=== PATIENT | female | born 1990 | race Caucasian/White ===

== ENCOUNTER 2019-04-25 05:25 | Emergency (ER) | payer MEDICAID ==
[~2019-04-25] VITALS: Ht 165.1 cm; Wt 74.8 kg
[2019-04-25] MEDS ORDERED: ALBUTEROL SULFATE/IPRATROPIU 3 ML SOL IH STA (05:30)
[2019-04-25] MEDS ORDERED: ALBUTEROL SULFATE/IPRATROPIU 3 ML SOL IH ONE (05:30)
--- NOTE | 2019-04-25 05:30 | NUR ---
BIB SELF REPORTS SOB, ASTHMA ATTACK, SINCE 10PM. STATES SHE HAS TRIED HER INHALER AND NEBULIZER WITHOUT RELIEF. AUDIBLE WHEEZING. LABORED AND DEEP BREATHING. 94% ON RA. PT REPORTS NO OTHER SYMPTOMS OR PAIN AT THIS TIME.
--- NOTE | 2019-04-25 05:37 | NUR ---
RT AT BEDSIDE.
[2019-04-25] MEDS ORDERED: DEXAMETHASONE 10 MG/ML VIAL IM ONE (06:00)
[2019-04-25] MEDS ORDERED: ALBUTEROL 0.083% 2.5 MG/3 ML NEBU INH ONE (06:10)
[2019-04-25] MEDS ORDERED: MAG SULF 2000 MG/WATER PREMIX 50 ML IV ONE (06:30)
[2019-04-25 07:09] VITALS: BP 110/53
--- NOTE | 2019-04-25 07:09 | NUR ---
Patient discharged with v/s stable. Written and verbal after care instructions given and explained. Patient alert, oriented and verbalized understanding of instructions. Ambulatory with steady gait. All questions addressed prior to discharge. ID band removed. Patient advised to follow up with PMD. Rx of PREDNISONE, ALBUTEROL given. Patient educated on indication of medication including possible reaction and side effects. Opportunity to ask questions provided and answered.
== END 2019-04-25 07:04 | disposition home or self-care (01) ==
LOC: MED 05:25
DX: J45.901 Unspecified asthma with (acute) exacerbation (principal); F17.200 Nicotine dependence, unspecified, uncomplicated
CPT/HCPCS: 94640; 96372; 99284; J1100; J7613; J7620

== ENCOUNTER 2019-05-20 19:42 | Emergency (ER) | payer MEDICAID ==
[~2019-05-20] VITALS: Ht 165.1 cm; Wt 77.1 kg
[2019-05-20 19:47] VITALS: BP 145/90
--- NOTE | 2019-05-20 19:49 | NUR ---
TO LOBBY A/W BED AMBULATORY
--- NOTE | 2019-05-20 20:07 | NUR ---
PT TO BED 6.
--- NOTE | 2019-05-20 20:23 | NUR ---
PT BIB FAMILY C/O LOWER BACK PAIN. PT REPORTS FALLING IN SHOWER LAST NIGHT AND IS NOT SURE HOW SHE LANDED BUT DENIES HITING HEAD OR LOC. PT REPORTS PAIN AT 8/10 IN SACRAL REGION THAT RADIATES TO LT HIP, THAT IS WORSENED BY STRETCHING OR MOVEMENT. NO N/V OR DIZZINESS. NO SWELLING, BRUISING, OR DEFORMITY PRESENT. VSS. ER MD TO SEE PT. MEDHX:ASTHMA
--- NOTE | 2019-05-20 20:25 | NUR ---
Dr. Zapata examining patient.
[2019-05-20] MEDS ORDERED: IBUPROFEN 800 MG TAB PO ONE (20:30)
--- NOTE | 2019-05-20 20:43 | NUR ---
PT DOES NOT WANT TO PROVIDE URINE SAMPLE FOR TEST DUE TO PAIN WITH SITTING, PT STATES THEIR IS NO CHANCE SHE IS .
--- NOTE | 2019-05-20 21:07 | NUR ---
PT REFUSING LAB DRAW .
--- NOTE | 2019-05-20 21:12 | NUR ---
PT REFUSED LAB DRAW FOR TEST, DAX ASTORGA NOTIFIED, PT SIGNED CONSENT STATING THERE IS NO CHANCE SHE IS .
--- NOTE | 2019-05-20 21:17 | NUR ---
PT TAKEN TO XRAY
--- NOTE | 2019-05-20 21:45 | NUR ---
PT SITTING AT END OF BED, RR EVEN AND UNLABORED. VSS. REPORTS 9/10 LOWER BACK PAIN. ALL NEEDS MET AT THIS TIME.
[2019-05-20] MEDS ORDERED: CYCLOBENZAPRINE 10 MG TAB PO ONE (22:25)
[2019-05-20 22:57] VITALS: BP 110/63
--- NOTE | 2019-05-20 22:57 | NUR ---
Patient discharged with v/s stable. Written and verbal after care instructions given and explained. Patient alert, oriented and verbalized understanding of instructions. Ambulatory with steady gait. All questions addressed prior to discharge. ID band removed. Patient advised to follow up with PMD. Rx of IBUPROFEN, FLEXERIL given. Patient educated on indication of medication including possible reaction and side effects. Opportunity to ask questions provided and answered.
== END 2019-05-20 22:57 | disposition home or self-care (01) ==
LOC: MED 19:42
DX: S39.012A Strain of muscle, fascia and tendon of lower back, initial encounter (principal); J45.909 Unspecified asthma, uncomplicated; W01.0XXA Fall on same level from slipping, tripping and stumbling without subsequent striking against object, initial encounter; Y93.H1 Activity, digging, shoveling and raking; Y92.091 Bathroom in other non-institutional residence as the place of occurrence of the external cause; Y99.8 Other external cause status
CPT/HCPCS: 72110; 99283

== ENCOUNTER 2021-07-05 04:35 | Emergency (ER) | payer MEDICAID ==
[~2021-07-05] VITALS: Ht 165.1 cm; Wt 63.5 kg
[2021-07-05 04:35] VITALS: BP 126/62
--- NOTE | 2021-07-05 04:38 | NUR ---
TO LOBBY A/W BED , AMBULATORY
--- NOTE | 2021-07-05 05:11 | NUR ---
PT AMBULATORY TO BED 4
--- NOTE | 2021-07-05 05:15 | NUR ---
VAG D/C, PAIN, ITCHINESS FOR 2 DAYS, BUMPS ON LABIA. PAIN FEELS MORE LIKE A DISCOMFORT THAN PAIN. PATIENT DENIES HAVING MULTIPLE PARTNERS. AAOX4. GCS 15 DENIES PMH NKA
--- NOTE | 2021-07-05 05:35 | NUR ---
Female Master Of Ceremonies accompanied female patient for Pelvic Exam.
[2021-07-05] MEDS ORDERED: AZITHROMYCIN 250 MG TAB PO ONE (05:45)
[2021-07-05] MEDS ORDERED: DOXY-487 PO (05:45)
[2021-07-05] MEDS ORDERED: cefTRIAXone 500 MG in LIDOCAINE MPF 1% 1 ML IM ONE (05:45)
[2021-07-05] MEDS ORDERED: LIDOCAINE MPF 1% 5 ML ONE (05:54)
[2021-07-05] MEDS ORDERED: cefTRIAXone 500 MG VIAL ONE (05:54)
[2021-07-05 06:35] VITALS: BP 101/40
--- NOTE | 2021-07-05 06:35 | NUR ---
Patient discharged with v/s stable. Written and verbal after care instructions given and explained. Patient alert, oriented and verbalized understanding of instructions. Ambulatory with steady gait. All questions addressed prior to discharge. ID band removed. Patient advised to follow up with PMD. Rx of doxycycline hyclate given. Patient educated on indication of medication including possible reaction and side effects. Opportunity to ask questions provided and answered.
== END 2021-07-05 06:35 | disposition home or self-care (01) ==
LOC: MED 04:35
DX: A64 Unspecified sexually transmitted disease (principal); J45.909 Unspecified asthma, uncomplicated; Z79.899 Other long term (current) drug therapy
CPT/HCPCS: 36415; 81025; 87086; 87210; 96372; 99283; J0696; J2001; 87491

== ENCOUNTER 2022-03-06 03:50 | Emergency (ER) | payer MEDICAID ==
[~2022-03-06] VITALS: Ht 162.6 cm; Wt 53.5 kg
[~2022-03-06 03:50] MED LIST: DOXY-487 PO
[2022-03-06 04:05] VITALS: BP 144/80
--- NOTE | 2022-03-06 04:05 | NUR ---
TO BED AMBULATORY
[2022-03-06] MEDS ORDERED: cefTRIAXone 500 MG in LIDOCAINE MPF 1% 1 ML IM ONE (05:05)
[2022-03-06] MEDS ORDERED: DOXYCYCLINE 100 MG CAP PO ONE (05:05)
[2022-03-06] MEDS ORDERED: DOXY-690 PO (05:05)
--- NOTE | 2022-03-06 05:11 | NUR ---
pt left w/o signging dc paperwork. pt also did not receive med. attempted to track down pt but pt refused to come back in . pt said she would come back but proceeded into car. er made aware. non- admin meds
[2022-03-06 05:16] VITALS: BP 144/80
--- NOTE | 2022-03-06 05:16 | NUR ---
PT RETURNED FOR PAPER WORK. Patient discharged with v/s stable. Written and verbal after care instructions given and explained. Patient alert, oriented and verbalized understanding of instructions. Ambulatory with steady gait. All questions addressed prior to discharge. ID band removed. Patient advised to follow up with PMD. Rx of VIBRAMYCIN given. Patient educated on indication of medication including possible reaction and side effects. Opportunity to ask questions provided and answered.
== END 2022-03-06 05:16 | disposition home or self-care (01) ==
LOC: MED 03:50
DX: N89.8 Other specified noninflammatory disorders of vagina (principal); J45.909 Unspecified asthma, uncomplicated; F11.90 Opioid use, unspecified, uncomplicated; Z79.899 Other long term (current) drug therapy
CPT/HCPCS: 99283